=== PATIENT | male | born 2000 | race Two or more races ===

== ENCOUNTER 2019-08-31 23:26 | Emergency (ER) | payer OTHER ==
[~2019-08-31] VITALS: Ht 172.7 cm; Wt 122.0 kg
--- NOTE | 2019-08-31 23:45 | NUR ---
MD AT BEDSIDE TO ASSESS PT
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
[2019-09-01] MEDS ORDERED: SODIUM CHLORIDE 0.9% 1,000ML IVBOLUS ONE
[2019-09-01] MEDS ORDERED: ACETAMINOPHEN 325 MG TABLET PO ONE
[2019-09-01] MEDS ORDERED: ACETAMINOPHEN 325 MG TABLET ONE (00:01)
[2019-09-01 00:09] VITALS: BP 128/76
[2019-09-01 00:25] LABS: BASOPHILS # (AUTO) 0.02 x10^3/uL (0-0.1); BASOPHILS % (AUTO) 0 % (0-1); EOSINOPHILS # (AUTO) 0.04 x10^3/uL (0-0.4); EOSINOPHILS % (AUTO) 1 % (1-7); LYMPHOCYTES # (AUTO) 1.37 x10^3/uL (1-3.4); LYMPHOCYTES % (AUTO) 24 % (22-44); MD NO; MEAN CORPUSCULAR HEMOGLOBIN 29.6 pg (27.5-34.5); MEAN CORPUSCULAR HGB CONC 34.1 g/dL (33.2-36.2); MEAN PLATELET VOLUME 7.8 fL (7.4-10.4); MONOCYTES # (AUTO) 0.59 x10^3/uL (0.2-0.8); MONOCYTES % (AUTO) 10 % (2-9); NEUTROPHILS # (AUTO) 3.77 x10^3/uL (1.8-6.8); NEUTROPHILS % (AUTO) 65 % (42-75); PLATELET COUNT 286 x10^3/uL (130-400); RED BLOOD COUNT 4.69 x10^6/uL (4.38-5.82); RED CELL DISTRIBUTION WIDTH 12.5 % (9.4-14.8)
[2019-09-01 00:35] LABS: ALANINE AMINOTRANSFERASE 45 U/L (12-78); ALBUMIN 3.7 g/dL (3.4-5.0); ANION GAP 9 mmol/L (5-15); CALCIUM 8.4 mg/dL (8.5-10.1); CHLORIDE 104 mmol/L (98-107); CREATININE 0.88 mg/dL (0.7-1.3)
[2019-09-01 00:37] LABS: ALKALINE PHOSPHATASE 43 U/L (45-117); BILIRUBIN,TOTAL 0.3 mg/dL (0.2-1.0); TOTAL PROTEIN 8.5 g/dL (6.4-8.2)
--- NOTE | 2019-09-03 23:03 | NUR ---
charge poster: pt called due to positive covid. another rn spoke with pt earlier, advised to contact [facility] after 0800 tomorrow am, self quarantine and pt reports feeling better with treatment.
== END 2019-09-01 01:16 | disposition home or self-care (01) ==
LOC: ED 09-01 01:10
DX: B97.29 Other coronavirus as the cause of diseases classified elsewhere (principal); J12.89 Other viral pneumonia
CPT/HCPCS: 36415; 71045; 80053; 85025; 99284; J7030